=== PATIENT | male | born 1960 | race Caucasian/White ===

== ENCOUNTER 2018-07-11 18:49 | Emergency (ER) | payer OTHER ==
[~2018-07-11] VITALS: Ht 162.6 cm; Wt 68.0 kg
[2018-07-11 18:54] VITALS: Ht 162.6 cm; Wt 68.0 kg
[2018-07-12 06:21] VITALS: BP 133/69
== END 2018-07-12 06:21 | disposition home or self-care (01) ==
LOC: ED 18:49
DX: S02.2XXA Fracture of nasal bones, initial encounter for closed fracture (principal); F10.129 Alcohol abuse with intoxication, unspecified; I10 Essential (primary) hypertension; W01.0XXA Fall on same level from slipping, tripping and stumbling without subsequent striking against object, initial encounter; Y93.89 Activity, other specified; Y92.89 Other specified places as the place of occurrence of the external cause; Y99.8 Other external cause status
CPT/HCPCS: 90715

== ENCOUNTER 2018-12-02 12:21 | Emergency (ER) | payer OTHER ==
[~2018-12-02] VITALS: Ht 170.2 cm; Wt 69.9 kg
[2018-12-02 12:23] VITALS: Ht 170.2 cm; Wt 69.9 kg
[2018-12-02 12:54] LABS: PLATELET COUNT 95 x10^3mcL (130-400); RED CELL DISTRIBUTION WIDTH 14.1 % (11.5-14.5)
[2018-12-02 13:06] LABS: CALCIUM 8.7 mg/dL (8.5-10.1); CHLORIDE SERUM 97 mmol/L (98-107); GFR1 > 60 mL/min; GLUCOSE SERUM 94 mg/dL (74-106); POTASSIUM SERUM 3.6 mmol/L (3.5-5.1); SODIUM SERUM 137 mmol/L (136-145)
[2018-12-02 13:14] LABS: ALBUMIN 4.2 g/dL (3.4-5.0); ALKALINE PHOSPHATASE 82 U/L (46-116); ALT/SGPT 70 U/L (16-63); AST/SGOT 137 U/L (15-37); BILIRUBIN TOTAL 0.65 mg/dL (0.20-1.00)
[2018-12-02 13:15] LABS: TOTAL PROTEIN, SERUM 8.5 g/dL (6.4-8.2)
[2018-12-02 15:46] VITALS: BP 143/83
== END 2018-12-02 16:41 | disposition home or self-care (01) ==
LOC: ED → EDBD 12:21 → ED 16:41
PROVIDERS: Emergency Medicine
DX: S00.83XA Contusion of other part of head, initial encounter (principal); I10 Essential (primary) hypertension; F10.10 Alcohol abuse, uncomplicated; D61.818 Other pancytopenia; W18.30XA Fall on same level, unspecified, initial encounter; Y93.89 Activity, other specified; Y92.89 Other specified places as the place of occurrence of the external cause; Y99.8 Other external cause status
CPT/HCPCS: 36415; G0480; Q0092